=== PATIENT | female | born 1995 | race Caucasian/White ===

== ENCOUNTER 2016-10-01 13:14 | Emergency (ER) | payer OTHER ==
[~2016-10-01] VITALS: Ht 160 cm; Wt 76.8 kg
[~2016-10-01 13:14] MED LIST: BIRTH CONTROL; NAPROSYN500 MG PO; ZOFRAN 4MG T4 MG/TAB PO
[2016-10-01 13:21] VITALS: BP 116/78; PULSE 80; TEMP 98
[2016-10-01] MEDS ORDERED: PRIL40 PO (13:24)
[2016-10-01] MEDS ORDERED: CYMBALTA 30MG30 MG PO (13:24)
== END 2016-10-01 15:46 | disposition home or self-care (01) ==
LOC: COL.ER 13:14
DX: K21.9 Gastro-esophageal reflux disease without esophagitis (principal); M54.89 Other dorsalgia; R11.10 Vomiting, unspecified

== ENCOUNTER 2017-02-23 02:43 | Emergency (ER) | payer OTHER ==
[~2017-02-23] VITALS: Ht 160 cm; Wt 81.8 kg
[~2017-02-23 02:43] MED LIST changes: +CLARITIN 1010 MG/TAB PO; +CLARITIN-D 10 M1 T24 PO; +CYMBALTA 30MG30 MG PO; +DEXILANT60 MG PO; +NORCO 325 MG-51 TAB PO; +PRIL40 PO
[2017-02-23 02:46] VITALS: TEMP 98.9
[2017-02-23 03:35] LABS: BASO # 0.1 (0.0-0.2); BASO % 0.7 % (0.0-2.0); EOS # 0.3 (0.0-0.7); EOS % 4.7 % (0-4.0); GRAN # 4.3 (1.4-6.5); GRAN % 62.5 % (42.2-75.2); HEMATOCRIT 41.3 % (37.0-47.0); HEMOGLOBIN 13.7 g/dl (12.5-16.0); LYMPH # 1.7 (1.2-3.4); LYMPH % 25.2 % (20.0-51.0); MEAN CELL VOLUME 86 fl (80.0-100.0); MEAN CORPUSCULAR HEMOGLOBIN 28 pg (27.0-31.0); MEAN CORPUSCULAR HGB CONC 33 g/dl (33.0-37.0); MEAN PLATELET VOLUME 9.3 fl (7.4-10.4); MONO # 0.5 (0.1-0.6); MONO % 6.8 % (1.7-9.3); PLATELET COUNT 328 K/mm3 (130-400); RED BLOOD COUNT 4.82 M/mm3 (4.10-5.30); WHITE BLOOD COUNT 6.9 K/mm3 (4.8-10.8)
[2017-02-23 03:46] LABS: ADJUSTED CALCIUM 9.5 mg/dL (8.4-10.2); ALANINE AMINOTRANSFERASE 41 U/L (9-52); ALBUMIN 4.8 gm/dL (3.5-5.0); ALKALINE PHOSPHATASE 96 U/L (50-136); ANION GAP 12 mmol/L (7-16); BILIRUBIN,TOTAL 0.6 mg/dL (0.0-1.0); BLOOD UREA NITROGEN 8 mg/dL (7-17); CALCIUM 10.1 mg/dL (8.4-10.2); CARBON DIOXIDE 25 mmol/L (22-30); CHLORIDE 105 mmol/L (98-107); CREATININE, serum 0.67 mg/dL (0.52-1.25); GLUCOSE 103 mg/dL (74-106); POTASSIUM 3.8 mmol/L (3.4-5.0); SODIUM 141 mmol/L (137-145); TOTAL PROTEIN 8.5 gm/dL (6.4-8.2)
[2017-02-23 03:48] LABS: ACETAMINOPHEN < 10 ug/mL (10-30); ALCOHOL(ethanol),MEDICAL < 10 mg/dL; SALICYLATE < 1.0 mg/dL
[2017-02-23 03:56] LABS: AMPHETAMINE URINE NEGATIVE; BARBITURATES URINE NEGATIVE; BENZODIAZEPINES URINE NEGATIVE; BUPRENORPHINE URINE NEGATIVE; METHADONE URINE NEGATIVE; OPIATES URINE NEGATIVE; OXYCODONE URINE NEGATIVE; PHENCYCLIDINE URINE NEGATIVE; PROPOXYPHENE URINE NEGATIVE; THC CANNABINOIDS URINE NEGATIVE; TRICYCLIC ANTIDEPRESS URINE NEGATIVE
[2017-02-23 13:14] VITALS: BP 138/77; PULSE 81
== END 2017-02-23 13:15 ==
LOC: COL.ER 02:43
PROVIDERS: Emergency Medicine
DX: R45.851 Suicidal ideations (principal); F17.210 Nicotine dependence, cigarettes, uncomplicated

== ENCOUNTER → 2018-07-26 | Outpatient (CLI) | payer BC | LOC: COL.RAD 07:29 | DX: R10.2 Pelvic and perineal pain (principal) ==

== ENCOUNTER → 2019-09-25 | Outpatient (CLI) | payer BC | LOC: COL.LAB 15:20 | DX: J02.9 Acute pharyngitis, unspecified (principal); R52 Pain, unspecified; Z20.828 Contact with and (suspected) exposure to other viral communicable diseases ==

== ENCOUNTER 2020-12-17 11:58 | Outpatient (CLI) | payer BC ==
--- NOTE | 2020-12-17 12:10 | NUR ---
Patient ambulates to LR4, changed into gown, FHR/TOCO monitors applied and explained. Patient states she has been having abdominal pain and diarrhea since yesterday. Denies any leaking of fluid/vaginal bleeding/regular painful contractions/decreased movement. Plan of care discussed 1220: SVE- closed/thick/high Dr. Loredo called and updated and order received. See physician notification. 1240: IV started in right hand, blood obtained and to lab, LR infusing. UA obtained. Plan of care discussed.
[2020-12-17 12:30] VITALS: BP 122/71; PULSE 82; TEMP 98.2
[2020-12-17 12:56] LABS: COLLECTION METHOD CLEAN CATCH
[2020-12-17 13:00] LABS: BASO % 0.4 % (0.0-2.0); EOS # 0.3 (0.0-0.7); EOS % 2.7 % (0-4.0); GRAN # 7.7 (1.4-6.5); GRAN % 69.2 % (42.2-75.2); HEMOGLOBIN 10.5 g/dl (12.5-16.0); LYMPH # 2.1 (1.2-3.4); LYMPH % 19.2 % (20.0-51.0); MEAN CELL VOLUME 83 fl (80.0-100.0); MEAN CORPUSCULAR HEMOGLOBIN 26 pg (27.0-31.0); MEAN CORPUSCULAR HGB CONC 31 g/dl (33.0-37.0); MEAN PLATELET VOLUME 9.3 fl (7.4-10.4); MONO # 0.8 (0.1-0.6); MONO % 7.2 % (1.7-9.3); PLATELET COUNT 311 K/mm3 (130-400); RED BLOOD COUNT 4.04 M/mm3 (4.10-5.30); REDCELL DISTRIBUTION WIDTH-CV 14.9 % (11.5-14.5)
[2020-12-17 13:04] LABS: PH 6 (5-8); SQUAMOUS EPITHELIAL None Seen /hpf; URINE APPEARANCE Clear; URINE BACTERIA Rare /hpf; URINE BILIRUBIN Negative (NEGATIVE); URINE BLOOD Negative (NEGATIVE); URINE COLOR Colorless; URINE GLUCOSE Negative (NEGATIVE); URINE KETONE Negative (NEGATIVE); URINE LEUKOCYTE ESTERASE Negative (NEGATIVE); URINE NITRATE Negative (NEGATIVE); URINE PROTEIN(semi-quant) Negative (NEGATIVE); URINE RBC None Seen /hpf; URINE UROBILINOGEN Negative (NEGATIVE); URINE WBC 0-2 /hpf
[2020-12-17 13:14] LABS: HEMATOCRIT 33.5 % (37.0-47.0)
[2020-12-17 13:17] LABS: ALBUMIN 3.8 gm/dL (3.5-5.0); BILIRUBIN,TOTAL 0.2 mg/dL (0.0-1.0); CALCIUM 9.5 mg/dL (8.4-10.2); CREATININE, serum 0.43 (0.52-1.25); TOTAL PROTEIN 7.1 gm/dL (6.4-8.2)
[2020-12-17] MEDS ORDERED: LAMICTAL ODT200 MG TL (13:47)
[2020-12-17] MEDS ORDERED: PRENATAL TABLET PO (13:47)
[2020-12-17] MEDS ORDERED: FERRO-TIME325 MG PO (13:48)
[2020-12-17] MEDS ORDERED: VITAMIN C500 MG PO (13:48)
[2020-12-17] MEDS ORDERED: ZYRTEC 10MG10 MG PO (13:49)
[2020-12-17 14:00] VITALS: BP 123/69; PULSE 70
--- NOTE | 2020-12-17 14:00 | NUR ---
Discharge instructions discussed and patient verbalizes understanding. INT removed and patient tolerates well. 1410: Patient ambulates off unit with [id number]
== END 2020-12-17 14:10 | disposition home or self-care (01) ==
LOC: LDRO 11:58 → LDR 12:40 → LDRO 14:10
PROVIDERS: Obstetrics & Gynecology
DX: O26.893 Other specified pregnancy related conditions, third trimester (principal); R10.9 Unspecified abdominal pain; Z3A.29 29 weeks gestation of pregnancy
CPT/HCPCS: OP; J7120

== ENCOUNTER 2021-01-29 09:49 | Outpatient (CLI) | payer BC ==
[~2021-01-29] VITALS: Ht 162.6 cm; Wt 104.5 kg
[~2021-01-29 09:49] MED LIST changes: +FERRO-TIME325 MG PO; +LAMICTAL ODT200 MG TL; +PRENATAL TABLET PO; +VITAMIN C500 MG PO; +ZYRTEC 10MG10 MG PO
[2021-01-29 10:20] VITALS: BP 131/73; PULSE 95; TEMP 98.4
== END 2021-01-29 10:25 | disposition home or self-care (01) ==
LOC: LDRO 09:49
DX: Z34.93 Encounter for supervision of normal pregnancy, unspecified, third trimester (principal); Z3A.35 35 weeks gestation of pregnancy

== ENCOUNTER 2021-02-21 11:22 | Outpatient (CLI) | payer BC ==
[~2021-02-21] VITALS: Ht 162.6 cm; Wt 108.2 kg
--- NOTE | 2021-02-21 11:30 | NUR ---
1130-38.5 , here with complaints of LOF and irregular ctx. Reports normal movement, denies VB. Ambulatory to LDR5 with friend. Changed into gown. EFM/TOCO applied. 1145-Amnitest done, negative result. SVE /-2.
[2021-02-21 12:00] VITALS: BP 119/69; PULSE 88
[2021-02-21] MEDS ORDERED: PRIL40 PO (12:01)
[2021-02-21 12:30] VITALS: PULSE 86
[2021-02-21 12:43] VITALS: BP 118/69; PULSE 84
--- NOTE | 2021-02-21 12:43 | NUR ---
1243-EFM off. Patient instructed to change. 1255-Discharge instructions review. Patient verbalized understanding. Ambulatory off unit.
== END 2021-02-21 12:55 | disposition home or self-care (01) ==
LOC: LDRO 11:22
DX: O62.9 Abnormality of forces of labor, unspecified (principal); O34.62 Maternal care for abnormality of vagina, second trimester; Z3A.38 38 weeks gestation of pregnancy

== ENCOUNTER 2021-02-27 13:41 | Outpatient (CLI) | payer BC ==
[~2021-02-27] VITALS: Ht 162.6 cm; Wt 109.1 kg
--- NOTE | 2021-02-27 13:35 | NUR ---
PATIENT HERE FOR LABOR CHECK WITH . PATIENT ON EFM, CHANGED INTO GOWN, ASSESMENT COMPLETE, PATIENT DENIES BLEEDING, SROM NEG AMNISWAB. SVE PREFORMED.
[2021-02-27 14:00] VITALS: BP 137/74; PULSE 90; TEMP 97.9
== END 2021-02-27 15:00 | disposition home or self-care (01) ==
LOC: LDRO 13:41
DX: O62.9 Abnormality of forces of labor, unspecified (principal); Z3A.39 39 weeks gestation of pregnancy

== ENCOUNTER 2021-03-04 20:34 | Outpatient (CLI) | payer BC ==
[~2021-03-04] VITALS: Ht 162.6 cm; Wt 110.0 kg
[2021-03-04 21:32] VITALS: BP 133/82; PULSE 106; TEMP 98
--- NOTE | 2021-03-04 21:44 | NUR ---
2054: PT. AMBULATORY TO UNIT FOR C/O OF CTX. SHE STATES THEY HAVE BEEN 2-3MIN APART FOR THE LAST 3 HOURS. FEELING BABY MOVE, NO VAGINAL BLEEDING, NO LEAKING FLUID. ORIENTED TO LR5, CLEAN GOWN ON, EFM/TOCO APPLIED, VS OBTAINED, ASSESSMENTS COMPLETED. FHT REACTIVE. INFORMED PT. SHE CAN GET UP AND WALK AROUND. WILL CONTINUE TO MONITOR FOR HOUR LABOR CHECK
[2021-03-04 22:45] VITALS: BP 139/85; PULSE 96
--- NOTE | 2021-03-04 23:13 | NUR ---
2305: DISCHARGE INSTRUCTIONS GIVEN. RN INVITED AND ANSWERED QUESTIONS/CONCERNS. PT. REFUSES TO WALK TO CAR SO IS PUSHING WHEELCHAIR THEY TOOK FROM THE HALLWAY. PT. ESCORTED TO FRONT OF UNIT. NO ADDITONAL QUESTIONS/CONCERNS AT THIS TIME. INFORMED PT. WHEN TO COME BACK OR CALL WITH ANY QUESTIONS. PT. STABLE AT THIS TIMEM
== END 2021-03-04 23:05 | disposition home or self-care (01) ==
LOC: LDRO 20:34 → LDR 20:50 → LDRO 23:05
DX: O62.9 Abnormality of forces of labor, unspecified (principal); Z3A.40 40 weeks gestation of pregnancy
CPT/HCPCS: OP

== ENCOUNTER 2021-03-05 06:55 | Inpatient (IN) | payer BC ==
[~2021-03-05] VITALS: Wt 117.3 kg
[2021-03-05] VITALS (31 sets, daily range): BP systolic 110–164; BP diastolic 55–90; PULSE 76–111; TEMP 98.1–98.8
--- NOTE | 2021-03-05 06:58 | NUR ---
0600 Patient here for complaints of srom this am around 0515. EFM on FHT 135 baby very active. contractions 6-8 min apart and palpate firm. SVE by Shayy Alamo RN / amniotrace negative at this time. some bloody show noted. Assessment completed by this nurse. will recheck in hour
[2021-03-05 07:40] LABS: BASO % 0.2 % (0.0-2.0); EOS # 0.1 K/mm3 (0.0-0.7); EOS % 0.4 % (0-4.0); GRAN # 13.2 K/mm3 (1.4-6.5); GRAN % 84.6 % (42.2-75.2); HEMOGLOBIN 11.3 g/dl (12.5-16.0); LYMPH # 1.6 K/mm3 (1.2-3.4); LYMPH % 10.4 % (20.0-51.0); MEAN CELL VOLUME 79 fl (80.0-100.0); MEAN CORPUSCULAR HEMOGLOBIN 25 pg (27.0-31.0); MEAN CORPUSCULAR HGB CONC 32 g/dl (33.0-37.0); MEAN PLATELET VOLUME 9.4 fl (7.4-10.4); MONO # 0.6 K/mm3 (0.1-0.6); MONO % 3.7 % (1.7-9.3); PLATELET COUNT 325 K/mm3 (130-400); RED BLOOD COUNT 4.52 M/mm3 (4.10-5.30); REDCELL DISTRIBUTION WIDTH-CV 16.3 % (11.5-14.5)
[2021-03-05 07:46] LABS: HEMATOCRIT 35.8 % (37.0-47.0)
--- NOTE | 2021-03-05 08:50 | NUR ---
0700 PATIENT REPOSITIONED TO LEFT SIDE. SVE /-2 AMNIOTRCE + AT THIS TIME WITH CLEAR FLUID NOTED. DR MARY CALLED AND UPDATED AND ORDERS GIVEN TFOR ADMIT FOR LABOR.
--- NOTE | 2021-03-05 09:12 | NUR ---
0720 IV STARTED IN LEFT HAND BY A MULBURRY AND ALL CONSENTS SIGNED FOR LABOR.
--- NOTE | 2021-03-05 09:32 | NUR ---
7836 Yun WILKINS CRNA AT BEDSIDE FOR EPIDURAL PLACEMENT. PATIENT SITS UP IN BED. [facility]. PATIENT TOLERATE WELL.
--- NOTE | 2021-03-05 09:43 | NUR ---
0855 SVE 6/100/0. BLOODY SHOW NOTED. ANDRADE PLACED AT THIS TIME
--- NOTE | 2021-03-05 10:59 | NUR ---
1046 DR MARY AT BEDSIDE TO TALK WITH PATIENT AND . ORDERS TO START PITOCIN PER DR AMRY AT THIS TIME
--- NOTE | 2021-03-05 12:44 | NUR ---
1145 PATIENT COMPLETE/100/+1. LUPE SHETTY'Yun AT THIS TIME AND DR MARY CALLED FOR DELIVERY
--- NOTE | 2021-03-05 12:47 | NUR ---
1200 DR MARY AT BEDSIDE FOR DELIVERY FHT 80'S AFTER PUSHING. VACUUM APPLIED PER DR MARY WITH 2 POP OFFS. 1201 BABY GIRL DELIVERED VIA . CORD CLAMPED AND CUT BY DR MARY AND TO MOM CHEST SKIN TO SKIN. STRONG CRY NOTED. 1205 SMALL REPAIR DONE BY DR MARY AT THIS TIME. PATIENT TOLERATES WELL. [address] MARY AND PITOCIN STARTED AT 333 PER PROTOCOL. PATIENT TOLERATES WELL. FUNDUS FIRM AND MINIMAL BLEEDING NOTED. BABY REMAINS SKIN TO SKIN.
[2021-03-06 08:45] VITALS: BP 126/70; PULSE 95; TEMP 98.1
[2021-03-06 11:15] VITALS: BP 119/72; PULSE 80; TEMP 98.2
[2021-03-06] MEDS ORDERED: MOTRIN 600600 MG/TAB PO (14:49)
[2021-03-06] MEDS ORDERED: ROXICODONE 55 MG/TAB PO (14:50)
--- NOTE | 2021-03-06 15:45 | NUR ---
DISCHARGE TEACHING COMPLETED. EDUCATED ON FOLLOW UP APPOINTMENT AND PRESCRIPTIONS. QUESTIONS INVITED AND ANSWERED.
== END 2021-03-06 16:05 | disposition home or self-care (01) | DRG 807 ==
LOC: LDRO 06:55 → LDR 07:12 → OB 15:00
PROVIDERS: Obstetrics & Gynecology; ADMIT Obstetrics & Gynecology
PROC: 10D07Z6 Extraction of Products of Conception, Vacuum, Via Natural or Artificial Opening (ICD-10-PCS; principal; 2021-03-05)
PROC: 0KQM0ZZ Repair Perineum Muscle, Open Approach (ICD-10-PCS; 2021-03-05)
DX: O99.02 Anemia complicating childbirth (principal); Z37.0 Single live birth; D64.9 Anemia, unspecified; O99.214 Obesity complicating childbirth; O99.62 Diseases of the digestive system complicating childbirth; K21.9 Gastro-esophageal reflux disease without esophagitis; O99.344 Other mental disorders complicating childbirth; F32.A Depression, unspecified; O76 Abnormality in fetal heart rate and rhythm complicating labor and delivery; O70.1 Second degree perineal laceration during delivery; Z3A.40 40 weeks gestation of pregnancy; Z23 Encounter for immunization
CPT/HCPCS: J2590; J2795; J7120

== ENCOUNTER 2023-06-16 10:33 | Emergency (ER) | payer OTHER ==
[~2023-06-16] VITALS: Ht 160 cm; Wt 73.2 kg
[~2023-06-16 10:33] MED LIST changes: +MOTRIN 600600 MG/TAB PO; +REGLAN 10MG10 MG/TAB PO; +ROXICODONE 55 MG/TAB PO
[2023-06-16 10:37] VITALS: TEMP 97.8
--- NOTE | 2023-06-16 11:15 | NUR ---
EFM/TOCO TRACING AT THIS TIME. NO DECELERATIONS NOTED. INTERMITTENT MODERATE AND MINIMAL VARIABILITY. POSITIVE MOVEMENT WITH PALPATION. DENIES LOF. NO CONTRACTIONS NOTED. HEART RATE: 150'S.
[2023-06-16 11:56] VITALS: BP 109/51; PULSE 70
== END 2023-06-16 11:56 | disposition home or self-care (01) ==
LOC: COL.ER 10:33
DX: O9A.212 Injury, poisoning and certain other consequences of external causes complicating pregnancy, second trimester (principal); S63.502A Unspecified sprain of left wrist, initial encounter; S80.01XA Contusion of right knee, initial encounter; Z3A.23 23 weeks gestation of pregnancy; W01.0XXA Fall on same level from slipping, tripping and stumbling without subsequent striking against object, initial encounter; Y93.01 Activity, walking, marching and hiking

== ENCOUNTER 2023-09-09 11:40 | Outpatient (CLI) | payer BC ==
[~2023-09-09] VITALS: Ht 160 cm; Wt 85.0 kg
[2023-09-09] MEDS ORDERED: LR 1,000 ML IV PRN (12:00)
--- NOTE | 2023-09-09 12:09 | NUR ---
1140 PT ARRIVES ON UNIT COMPLAINING OF CONTRACTIONS SINCE YESTERDAY AT 11 AM THAT HAVE PROGRESSIVELY GOTTEN WORSE. PT RATING CONTRACTION PAIN 6 OUT OF 10. PT DENIES LOF, VB, DFM, OR ANY OTHER CHANGES/CONCERNS AT THIS TIME. RN DISCUSSES POC WITH PT AND PT VERBALIZES UNDERSTANDING.
--- NOTE | 2023-09-09 12:10 | NUR ---
1205 ASHLEIGH BARBER UPDATED ON PT ARRIVAL, COMPLAINTS, HX, FHTS, CTX PATTERN, AND SVE. ORDERS TO GIVE PT 1000 MG TYLENOL AND OFFER 25 MG PO OF BENADRYL AT THIS TIME. INSTRUCTIONS GIVEN FOR PT TO ORALLY HYDRATE AND FOR RN TO REPEAT SVE IN ONE HOUR. RN RBVO.
--- NOTE | 2023-09-09 12:11 | NUR ---
1210 PT UPDATED ON RN DISCUSSION WITH ASHLEIGH BARBER. PT DECLINES TAKING THE BENADRYL AT THIS TIME BUT AGREES TO POC OTHERWISE.
[2023-09-09] MEDS ORDERED: Acetaminophen 500 MG TAB PO ONE (12:15)
[2023-09-09] MEDS ORDERED: ASPIRIN 81M81 MG/TA2 PO (12:22)
[2023-09-09] MEDS ORDERED: DESYREL 100MG100 MG PO (12:22)
[2023-09-09 12:30] VITALS: BP 113/78; PULSE 77; TEMP 97.9
--- NOTE | 2023-09-09 13:12 | NUR ---
1305 ASHLEIGH BARBER UPDATED ON TYLENOL GIVEN, PT ORALLY HYDRATING, PT DECLINED BENADRYL, FHTS REACTIVE, CTX PATTERN, AND SVE UNCHANGED. ASHLEIGH GAVE ORDERS TO DISCHARGE PT HOME AT THIS TIME. RICKY SAINIVO.
--- NOTE | 2023-09-09 13:20 | NUR ---
1315 PT GIVEN BOTH WRITTEN AND VERBAL DISCHARGE INSTRUCTIONS. PT INSTRUCTED TO CALL/COME BACK IF PT NOTICES ANY LOF, VB, DFM, STRONG/REGULAR CTX, OR ANY OTHER CHANGES/CONCERNS. PT VERBALIZES UNDERSTANDING AND HAS NO QUESTIONS AT THIS TIME.
== END 2023-09-09 13:18 | disposition home or self-care (01) ==
LOC: LDRO 11:40
DX: O47.03 False labor before 37 completed weeks of gestation, third trimester (principal); Z3A.35 35 weeks gestation of pregnancy

== ENCOUNTER 2023-09-10 19:57 | Outpatient (CLI) | payer BC ==
[~2023-09-10] VITALS: Ht 160 cm; Wt 85.0 kg
[~2023-09-10 19:57] MED LIST changes: +ASPIRIN 81M81 MG/TA2 PO; +DESYREL 100MG100 MG PO
--- NOTE | 2023-09-10 20:00 | NUR ---
G2L1 at 35 weeks and 4 days arrives to unit with complaint of contractions every 2-3 minutes apart. Pt was recently seen as a labor check yesterday and was told to return to hospital when contractions got worse. SVE was 1-2/thick/posterior at that time per patient. Pt reports good movement, denies LOF, or vaginal bleeding. No problems this . Clean gown on. US and toco explained and applied. Vitals obtained. Admission assessment started. SVE 1-2/50/high, posterior, ballotable.
--- NOTE | 2023-09-10 20:15 | NUR ---
This RN at bedside for 15 minutes doing admission intake. No contractions noted on toco and patient has not appeared to have any contractions. When asking patient if she has had any she says she has felt pains every few minutes. [place] adjusted.
[2023-09-10 20:30] VITALS: BP 105/66; PULSE 80; TEMP 97.6
[2023-09-10] MEDS ORDERED: LR 1,000 ML IV PRN (20:45)
--- NOTE | 2023-09-10 20:45 | NUR ---
RN to bedside to review plan of care. Informed patient that Dr. Nicholas is ok with discharge home at this time since SVE has been unchanged for a day or we can perform the 1 hour labor check to see if cervix is changing. Pt ok with plan to discharge home now and not recheck cervix. At bedside through 2 contractions on toco and pt appears to be unaware.
--- NOTE | 2023-09-10 21:05 | NUR ---
Discharge instructions reviewed with patient, verbalized understanding. Questions welcomed and answered. Pt seen ambulating off unit in stable condition with spouse.
== END 2023-09-10 21:05 | disposition home or self-care (01) ==
LOC: LDRO 19:57
DX: O47.03 False labor before 37 completed weeks of gestation, third trimester (principal); Z3A.35 35 weeks gestation of pregnancy

== ENCOUNTER 2023-09-16 10:02 | Outpatient (CLI) | payer BC ==
[~2023-09-16] VITALS: Ht 160 cm; Wt 87.7 kg
--- NOTE | 2023-09-16 10:05 | NUR ---
Pt arrived on unit ambulatory and with concerns for contractions for the last week but worsening this morning. Pt denies any leaking of fluid or vaginal bleeding and reports normal movement. EFM and toco monitor started. SVE by this RN . Vital signs WNL. Dr. Loredo notified. Plan of care for labor assessment reviewed with pt and . Call light within reach.
[2023-09-16] MEDS ORDERED: LR 1,000 ML IV PRN (10:45)
[2023-09-16 11:00] VITALS: BP 120/74; PULSE 87; TEMP 98.1
--- NOTE | 2023-09-16 11:25 | NUR ---
SVE done with no change. Order for discharge home received.
--- NOTE | 2023-09-16 11:45 | NUR ---
Discharge instructions and follow up care reviewed with pt and at the bedside. Both verbalized an understanding and agreed with the plan.
== END 2023-09-16 11:45 | disposition home or self-care (01) ==
LOC: LDRO 10:02
DX: O47.03 False labor before 37 completed weeks of gestation, third trimester (principal); Z3A.36 36 weeks gestation of pregnancy

== ENCOUNTER 2023-09-27 16:49 | Inpatient (IN) | payer BC ==
[~2023-09-27] VITALS: Ht 160 cm; Wt 87.7 kg
[2023-09-27] VITALS (19 sets, daily range): BP systolic 104–146; BP diastolic 60–86; PULSE 63–93; TEMP 97.8–98.4
--- NOTE | 2023-09-27 17:00 | NUR ---
PT AMBULATORY TO UNIT BY HERSELF BUT REPORTS IS ON HIS WAY. PT ORIENTED TO ROOM AND CHANGED INTO GOWN, EFM AND TOCO PLACED ON MATERNAL STOMACH. SVE 4-5/80/-1 WITH CLEAR FLUID LEAKING, POSITIVE AMNIOTRACE. PT REPORTS HER WATER BROKE AT 1635 09/27/23 THIS EVENING. PT REPORTS POSITIVE MOVEMENT, NO VAGINAL BLEEDING, NOW FEELING RECURRENT CONTRACTIONS, AND IS HAVING PAIN WITH EACH CONTRACTION. EFM CAT 1 AND PT CONTRATING Q 2-5 MINUTES LASTING 60-160 SEC. PT VS STABLE, AWAKE AND ALERT X3. 1727 NOTIFED AND TELEPHONE ORDERS GIVEN TO ADMIT PT.
[2023-09-27] MEDS ORDERED: LR & Oxytocin 500 ML IV SCH (17:30)
[2023-09-27] MEDS ORDERED: LR 1,000 ML IV SCH (17:30)
[2023-09-27 17:54] LABS: BASO # 0.1 K/mm3 (0.0-0.2); BASO % 0.5 % (0.0-2.0); EOS # 0.3 K/mm3 (0.0-0.7); EOS % 2.5 % (0.0-4.0); GRAN # 7.1 K/mm3 (1.4-6.5); GRAN % 64.3 % (42.2-75.2); HEMATOCRIT 37.9 % (37.0-47.0); HEMOGLOBIN 12.6 g/dl (12.5-16.0); LYMPH # 2.5 K/mm3 (1.2-3.4); LYMPH % 22.9 % (20.0-51.0); MEAN CELL VOLUME 86 fl (80.0-100.0); MEAN CORPUSCULAR HEMOGLOBIN 29 pg (27-31); MEAN CORPUSCULAR HGB CONC 33 g/dl (33.0-37.0); MEAN PLATELET VOLUME 9.5 fl (7.4-10.4); MONO % 8.9 % (1.7-9.3); PLATELET COUNT 214 K/mm3 (130-400); RED BLOOD COUNT 4.41 M/mm3 (4.10-5.30); REDCELL DISTRIBUTION WIDTH-CV 13.4 % (11.5-14.5)
--- NOTE | 2023-09-27 17:58 | NUR ---
1753 FREYA PARKER AT PT BEDSIDE DISCUSSING AND EDUCATING PT AND PT SPOUSE ON EPIDURAL PROCEDURE. PT SITTING AT EDGE OF BED, VS STABLE, AND AWAKE AND ALERT X3. PT VERBALLY UNDERSTANDING AND SIGNED CONSENTING TO EPIDURAL. EFM CAT 1, CTX Q 2-3 MIN APART. THIS RN AT BEDSIDE WITH PATIENT. 1758 SINGLE SHOT ADMINISTERED PER FREYA TEACHER OF THE DEAF/HARD OF HEARING, PT TOLERATED WELL. 1800 PT REPOSITIONED WEDGE LEFT, PT VS STABLE, PT AWAKE AND ALERT X3. PT SPOUSE SUPPORTIVE AT BEDSIDE. PT COMFORTABLE AND DOES NPT REPORT PAIN WITH CONTRACTIONS BUT SHE CAN STILL FEEL THEM.
[2023-09-27] MEDS ORDERED: ROPivacaine PF 0.2% 200 ML IV ONE (18:08)
[2023-09-27] MEDS ORDERED: diphenhydrAMINE 50 MG/ML 1 ML VIAL IV PRN (18:15)
[2023-09-27] MEDS ORDERED: ePHEDrine 50 MG/10 ML VIAL IV PRN (18:15)
[2023-09-27] MEDS ORDERED: Naloxone 0.4 MG/ML VIAL IV PRN ×2 (18:15→21:30)
[2023-09-27] MEDS ORDERED: Ondansetron 4 MG/2 ML VIAL IV PRN (18:15)
[2023-09-27] MEDS ORDERED: diphenhydrAMINE 25 MG CAP PO PRN (18:15)
[2023-09-27] MEDS ORDERED: traZODone 50 MG TAB PO PRN (21:00)
[2023-09-27] MEDS ORDERED: Phenylephrine/Mineral Oil/Petrolatum 57 GM TUBE RC PRN (21:30)
[2023-09-27] MEDS ORDERED: Acetaminophen 500 MG TAB PO SCH (21:30)
[2023-09-27] MEDS ORDERED: Witch Hazel 50% Pads Bulk TUB TP PRN (21:30)
[2023-09-27] MEDS ORDERED: Measles/Mumps/Rubella Virus Vaccine Live w Diluent 0.5 ML VIAL SQ SCH (21:30)
[2023-09-27] MEDS ORDERED: Magnes Hydrox (MOM) 80 MG/ML 30 ML CUP PO PRN (21:30)
[2023-09-27] MEDS ORDERED: Ibuprofen 800 MG TAB PO SCH (21:30)
[2023-09-27] MEDS ORDERED: Loratadine 10 MG TAB PO PRN (21:30)
[2023-09-27] MEDS ORDERED: oxyCODONE 5 MG TAB PO PRN (21:30)
[2023-09-27] MEDS ORDERED: Mag/Al Hydrox/Simeth Susp 30 ML CUP PO PRN (21:30)
[2023-09-28 05:18] VITALS: BP 119/73; PULSE 74; TEMP 97.9
[2023-09-28 07:41] VITALS: BP 105/57; PULSE 66; TEMP 98
[2023-09-28] MEDS ORDERED: Sennosides/Docusate 8.6-50 MG TAB PO SCH (08:00)
[2023-09-28] MEDS ORDERED: Prenatal Vitamins/Iron/FA TAB PO SCH (09:00)
[2023-09-28] MEDS ORDERED: IBU800 M1 PO (09:30)
--- NOTE | 2023-09-28 10:12 | NUR ---
Initial visit; Patient thanked Computer Software Engineer for offering congratulations and God's blessings for the of her daughter. Computer Software Engineer thanked patient for choosing our hospital and hopes that her stay here has been satisfactory. Patient states her stay with us has been very good.
[2023-09-28 19:30] VITALS: BP 113/72; PULSE 74; TEMP 98.6
[2023-09-29 07:20] VITALS: BP 113/76; PULSE 73
== END 2023-09-29 12:05 | disposition home or self-care (01) | DRG 807 ==
LOC: LDRO 16:49 → LDR 17:30 → OB 23:20
PROVIDERS: Obstetrics & Gynecology; ADMIT Obstetrics & Gynecology
PROC: 10E0XZZ Delivery of Products of Conception, External Approach (ICD-10-PCS; principal; 2023-09-27)
PROC: 0UQMXZZ Repair Vulva, External Approach (ICD-10-PCS; 2023-09-27)
DX: O99.344 Other mental disorders complicating childbirth (principal); Z37.0 Single live birth; F32.A Depression, unspecified; F41.9 Anxiety disorder, unspecified; Z3A.38 38 weeks gestation of pregnancy; O70.0 First degree perineal laceration during delivery; Z23 Encounter for immunization
CPT/HCPCS: J2590; J2795; J7120